=== PATIENT | male | born 1975 | race African-American/Black ===

== ENCOUNTER 2019-12-06 12:31 | Emergency (ER) | payer OTHER ==
[~2019-12-06] VITALS: Ht 175.3 cm; Wt 108.0 kg
[2019-12-06] MEDS ORDERED: ZESTORETIC 10-1 EACH PO (13:05)
[2019-12-06] MEDS ORDERED: LIPITOR20 MG PO (13:06)
[2019-12-06] MEDS ORDERED: LEVOTHYROXINE25 MCG PO (13:06)
[2019-12-06] MEDS ORDERED: ULTRACET PO (15:33)
== END 2019-12-06 16:02 | disposition home or self-care (01) ==
LOC: ER 12:31
DX: S50.02XA Contusion of left elbow, initial encounter (principal); W18.09XA Striking against other object with subsequent fall, initial encounter; Y93.89 Activity, other specified; Y92.098 Other place in other non-institutional residence as the place of occurrence of the external cause; Y99.8 Other external cause status

== ENCOUNTER 2021-08-19 08:17 | Emergency (ER) | payer OTHER ==
[~2021-08-19] VITALS: Ht 175.3 cm; Wt 117.9 kg
[~2021-08-19 08:17] MED LIST: LEVOTHYROXINE25 MCG PO; LIPITOR20 MG PO; ULTRACET PO; ZESTORETIC 10-1 EACH PO
== END 2021-08-19 14:27 | disposition home or self-care (01) ==
LOC: ER 08:17
DX: U07.1 COVID-19 (principal); J45.998 Other asthma; Z88.0 Allergy status to penicillin; Z88.6 Allergy status to analgesic agent; E03.9 Hypothyroidism, unspecified; I10 Essential (primary) hypertension; J44.9 Chronic obstructive pulmonary disease, unspecified